=== PATIENT | female | born 1950 | race Two or more races ===

== ENCOUNTER 2022-02-23 11:20 | Outpatient (CLI) | payer OTHER | END 2022-02-23 11:29 | disposition home or self-care (01) | LOC: TOM 11:20 | PROVIDERS: ATTEND Orthopaedic Surgery | DX: S52.571A Other intraarticular fracture of lower end of right radius, initial encounter for closed fracture (principal) ==

== ENCOUNTER 2022-04-04 08:44 | Outpatient (CLI) | payer OTHER | END 2022-04-04 08:51 | disposition home or self-care (01) | LOC: RAD 08:44 | DX: S52.571D Other intraarticular fracture of lower end of right radius, subsequent encounter for closed fracture with routine healing (principal) ==

== ENCOUNTER 2022-06-06 08:35 | Outpatient (CLI) | payer OTHER | END 2022-06-06 08:37 | disposition home or self-care (01) | LOC: RAD 08:35 | PROVIDERS: ATTEND Orthopaedic Surgery | DX: M79.651 Pain in right thigh (principal) ==

== ENCOUNTER 2024-02-19 09:05 | Outpatient (CLI) | payer OTHER | END 2024-02-19 09:09 | disposition home or self-care (01) | LOC: RAD 09:05 | PROVIDERS: ATTEND Orthopaedic Surgery | DX: M17.11 Unilateral primary osteoarthritis, right knee (principal) ==